=== PATIENT | male | born 1975 | race Caucasian/White ===

== ENCOUNTER 2019-04-25 00:38 | Day surgery (SDC) | payer OTHER, SELFPAY ==
[2019-04-18 14:12] VITALS: BMI 36.0
--- NOTE | ~2019-04-25 | XR_ITS ---
EXAMINATION: XR small bowel follow through DATE: 04/25/2019 13:15 INDICATION: Terminal ileitis. Chronic right lower quadrant abdominal pain and chronic diarrhea. TECHNIQUE: Oral contrast was administered, and a time course of radiographs of the abdomen was obtain ed. Fluoroscopy of the small bowel was performed. Fluoroscopy exposure time was 0.3 minutes. The tota l number of images was 10. COMPARISON: CT abdomen and pelvis 08/12/2010 FINDINGS: There are no dilated loops of bowel. There is a short stricture of the terminal ileum. Transit time f rom the stomach to proximal colon was approximately 30 minutes. IMPRESSION: 1. Short stricture of the terminal ileum, consistent with infection versus Crohn disease. Reviewed, dictated and finalized at location A. LANE DISPATCH CLERK IMPRESSION: 1. Short stricture of the terminal ileum, consistent with infection versus Croh n disease.
[2019-04-25 09:35] VITALS: BP 135/79; PULSE 71; RESP 16; TEMP 36.4; O2SAT 99
[2019-04-25] MEDS: LACTATED RINGERS 1,000 ML 150 ML IV CONT (09:45)
--- NOTE | 2019-04-25 10:23 | P.CONGI_ITS ---
Assessment and Plan Additional Plan This is a 43-year-old white male patient seen in evaluation at the request of Laurie Liu. Patient states that he has a long history of heartburn in acid reflux. He occasionally will take Tums. If this does not work he occasionally takes pantoprazole. >These medicines promptly relieved his symptoms. Patient also reports many years that he has vague right lower quadrant pain. He describes it as a stabbing pain. It is not related to diet. It is not related to activity. Is not related to bowel habits. Recent CT scan of the abdomen suggested terminal ileal inflammation. There is no family history of inflammatory bowel disease. Patient's past history is significant for joint aches for which he takes diclofenac 1 or 2 tablets daily. Family history noncontributory. Current medications include albuterol. Occasional Tums, occasional pantoprazole, occasional diclofenac. No known medical allergies. Physical exam reveals patient to be alert. Anicteric. Vital signs stable. HEENT exam unremarkable. Lungs are clear to auscultation and percussion. Heart is without murmur or extra sounds. Abdominal exam bowel sounds are present soft nontender he may have some right lower quadrant discomfort on palpation. Digital external rectal exam normal. Impression 1. Heartburn. This seemed to suggest GE reflux. Plan is to continue anti acids as needed. An EGD will be performed. 2. Right lower quadrant abdominal pain. 3. Abnormal CT scan. This suggest he may have inflammation in the terminal ileum. This would correlate with his right lower quadrant pain. An colonoscopy will be performed. 4. Fatty liver. Likely related to body habitus. Low-fat diet advised. GI Consult Note Consult date/time: 04/25/19 10:23 HPI: Vasile Lewis is a 43 year old male [facility] Past Medical History Medical History (Updated 04/25/19 @ 10:29 by Jordan Fowler MD) Asthma Fatty liver Social History Social History Smoking status: Never smoker Alcohol intake: never Meds Home Medications and Allergies Home Medications Medication Instructions Recorded Confirmed Type albuterol sulfate 2 puff INHALATION Q4-6H PRN 04/18/19 04/18/19 History pantoprazole 40 mg PO DAILY PRN 04/18/19 04/25/19 History Allergies Allergy/AdvReac Type Severity Reaction Status Date / Time No Known Allergies Allergy Verified 03/02/20 09:33 Vital Signs Vital Signs - 24 hr 04/25/19 09:35 Temperature 36.4 C Pulse Rate 71 Respiratory Rate 16 Blood Pressure 135/79 Pulse Oximetry 99
--- NOTE | 2019-04-25 10:29 | WPDANESEPPF ---
Anes - Initial Pre Proc Eval Procedure: Operation Date: 04/25/19 10:30 Proposed Procedures p Esophagogastroduodenoscopy & Colonoscopy - Dani Lin MD Date/Time: 04/25/19 10:29 Surgeon: Dani Lin MD Pre Op Diagnosis: Esophagitis, abnormal CT scan Patient Data Age: 43 Gender: M Height: 5 ft 10 in Weight: 111.9 kg Last Vital Signs Temp 97.6 F 04/25/19 09:35 Pulse 71 04/25/19 09:35 Resp 16 04/25/19 09:35 BP 135/79 04/25/19 09:35 Pulse Ox 99 04/25/19 09:35 Allergies Allergy/AdvReac Type Severity Reaction Status Date / Time No Known Allergies Allergy Verified 04/25/19 09:33 Home Medications Medication Instructions Recorded Confirmed Type albuterol sulfate 2 puff INHALATION Q4-6H PRN 04/18/19 04/18/19 History pantoprazole 40 mg PO DAILY PRN 04/18/19 04/25/19 History Patient hx anesthesia problems: none Family hx anesthesia problems: none [facility] Past Medical History Medical History (Updated 04/25/19 @ 10:29 by Jordan Fowler MD) Asthma Fatty liver Social History Social History Smoking status: Never smoker Alcohol intake: never Anes - Eval Final PreProcedure Day of Procedure 04/25/19 10:29 Patient weight: obese Heart: regular rate and rhythm Lungs: clear to auscultation Airway: Mallampati scale class II Neurological: alert and oriented Last oral intake: >/= 8 hours ASA classification: II Emergent: no Anesthetic plan: proceed Anesthesia type and monitoring: general GIVS and standard monitoring Informed Consent: The patient's anesthetic plan and its attendant risks and benefits were discussed with the patient/family/POA. Questions were solicited and answers provided to the satisfaction of the patient/family/POA.
[2019-04-25] MEDS: BENZOCAINE (*SP) 60 ML SPRAY CAN (HURRICAINE) 1 SPRAY MUCOUS MEM (10:37)
[2019-04-25 10:58] VITALS: BP 118/76; PULSE 89; RESP 19; O2SAT 97
[2019-04-25 11:08] VITALS: BP 115/76; PULSE 74; RESP 20; O2SAT 97
[2019-04-25 11:18] VITALS: BP 116/81; PULSE 66; RESP 20; O2SAT 97
--- NOTE | 2019-04-25 11:37 | SUR.PHASEII ---
pt discharged to outpatient radiology for small bowel folow through
== END 2019-04-25 11:36 | disposition home or self-care (01) ==
PROVIDERS: PCP Physician Assistant; Visit Provider Internal Medicine Gastroenterology
PROC: 0DJ08ZZ Inspection of Upper Intestinal Tract, Via Natural or Artificial Opening Endoscopic (ICD-10-PCS; CPT 43235; principal; 2019-04-25 10:30)
DX: R10.31 Right lower quadrant pain (principal); R93.3 Abnormal findings on diagnostic imaging of other parts of digestive tract; R12 Heartburn; K76.0 Fatty (change of) liver, not elsewhere classified; J45.909 Unspecified asthma, uncomplicated; E66.9 Obesity, unspecified; Z68.35 Body mass index [BMI] 35.0-35.9, adult
CPT/HCPCS: 45380; 43235; 74250; 88305; J2704; J7120

== ENCOUNTER 2020-02-28 17:16 | Outpatient (CLI) | payer OTHER, SELFPAY ==
--- NOTE | ~2020-02-28 | XR_ITS ---
EXAMINATION: XR chest 2V EXAM DATE: 02/28/2020 17:30 INDICATION: Cough since November. History of asthma as child. TECHNIQUE: Frontal and lateral projections of the chest obtained and reviewed. There is no prior aracely dy for comparison. FINDINGS: The lungs are clear. There are no pleural effusions. The cardiomediastinal silhouette is within normal limits. There is no pneumothorax suspected. The bones and soft tissues are unremarkab le. IMPRESSION: Unremarkable chest x-ray exam. Reviewed, dictated and finalized at location A. DING RIGGER
== END 2020-02-28 17:17 | disposition home or self-care (01) ==
PROVIDERS: PCP Physician Assistant; Visit Provider Physician Assistant
DX: R05 Cough (principal)
CPT/HCPCS: 71046